=== PATIENT | female | born 1980 | race Caucasian/White ===

== ENCOUNTER → 2020-08-21 | Day surgery (SDC) | payer MEDICARE, MEDICAID ==
[~2020-08-21] MED LIST: BLISOVI 24 FE1 EACH PO; DILAUDID 44 MG/1 M1 IMPLANT; FAMOTIDINE 40 M40 M1 PO; FENOFIBRATE145 M1 PO; FETZIMA80 MG PO; HYDROCHLOROTH12.5 M2 PO; INSULIN AS100 UNIT/1 SUBQ; KLONOPIN1 MG PO; LIPITOR40 MG PO; LOMOTIL 2.5-0.01 TAB PO; LOSARTAN POTAS100 MG PO; LUNESTA3 MG PO; METFORMIN HCL500 M3 PO; NORCO5 PO; NOVOLIN 70100 UNIT/1 SUBQ; ONDANSETRON HCL4 M2 SUBLING; PROAIR HFA8.5 GM INH; PROMS25 WY RECTAL; REXULTI1 MG PO; SPRAVATO84 MG NARES; TOPROL XL100 MG PO; TOPROL XL50 MG PO; TRESIBA100 UNIT/1 SUBQ; UNICOMPLEX M TA1 TA1 PO; VITAMIN B-121000 MC2 SUBLING; VITAMIN D310 MC2 PO; WELLBUTRIN XL300 MG PO; ZYRTEC10 M4 PO
--- NOTE | ~2020-08-21 | OP ---
[facility] [address] [place] [address] OPERATIVE REPORT Name: SATINDERBARNEY A Room: [facility]#: [id number] Admission: 08/21/20 Attend Phys: Kiran Mckeon Discharge: Date of : 76 Report #: [id number] THIS REPORT FOR: cc: JAMES THORPE DO Physician not on staff Kiran Mckeon MD ~ DOC #: [id number] Kiran Mckeon MD DATE OF SURGERY: 08/21/2020 PREOPERATIVE DIAGNOSIS: Gastroparesis with history of gastric stimulator placement. POSTOPERATIVE DIAGNOSIS: Gastroparesis with history of gastric stimulator placement. PROCEDURE PERFORMED: 1. Laparoscopic removal of gastric stimulator leads. 2. Removal of gastric stimulator generator. SURGEON: Kiran Mckeon MD ANESTHESIA: General. ESTIMATED BLOOD LOSS: Minimal. SPECIMENS: None. DESCRIPTION OF PROCEDURE: After informed consent was obtained, the patient was brought to the operating room and placed supine. SCDs were placed and working. Preoperative antibiotics were administered, general anesthesia was induced. The abdomen was prepped and draped in the usual sterile fashion. A 5 mm incision was made in the left upper quadrant. A 5 mm trocar was placed under direct vision. Pneumoperitoneum was established. A periumbilical 5 mm trocar was placed. Two right upper quadrant 5 mm ports were placed under direct vision. I was able to visualize the antrum of the stomach. Where the leads were placed, there were two wafers. The wafers were dissected out. The Ethibond suture holding them in place was cut. The wafers were both removed. The trumpets on the back end of the lead were also identified. The suture holding them in place were cut as well. This allowed removal of the leads. I then removed the laparoscope. An incision was made over the gastric generator site. Cautery dissection was made down through the subcutaneous tissue into the abdominal wall. The battery capsule was identified. Capsule was incised and the generator and the leads attached to it were removed easily. I then excised the capsule with cautery. The skin was then closed with 3-0 [place] [address] OPERATIVE REPORT Name: BARNEY RAJAN Jagruti Room: [facility]#: [id number] Admission: 08/21/20 Attend Phys: Kiran Mckeon Discharge: Date of : 76 Report #: [id number] layer and 4-0 Monocryl in running subcuticular fashion for the skin. Incisions were dressed with Steri-Strips and sterile gauze. COMPLICATIONS: None. DISPOSITION: The patient was taken to recovery in satisfactory condition. Kiran Mckeon MD JDP/MAX By: [id number] Mckeon MD /javier
[2020-08-21 06:55] LABS: HEMATOCRIT 38.5 % (37.0-47.0); HEMOGLOBIN 13.2 gm/dL (12.0-15.0); MCH 30.6 pg (26.0-34.0); MCHC 34.4 g/dL (28.0-37.0); MPV 6.8 fl. (7.2-11.1); RBC 4.33 mil/uL (4.20-5.00); RDW-CV 13.2 % (10.5-14.5); WBC 7.5 thou/uL (4.0-11.0)
[2020-08-21 07:02] LABS: CALCIUM 9.7 mg/dL (8.5-10.1); CREATININE 0.8 mg/dL (0.6-1.3); POTASSIUM 4.2 mmol/L (3.5-5.1)
--- NOTE | 2020-08-21 11:10 | EKG ---
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
== END | disposition home or self-care (01) ==
LOC: M.SUR 06:32
PROVIDERS: ATTEND Surgery
DX: K31.84 Gastroparesis (principal); I10 Essential (primary) hypertension; E11.9 Type 2 diabetes mellitus without complications; J45.909 Unspecified asthma, uncomplicated; F32.9 Major depressive disorder, single episode, unspecified; F41.9 Anxiety disorder, unspecified; K21.9 Gastro-esophageal reflux disease without esophagitis; G47.30 Sleep apnea, unspecified; Z79.899 Other long term (current) drug therapy; Z20.822 Contact with and (suspected) exposure to COVID-19; Z98.890 Other specified postprocedural states; Z88.8 Allergy status to other drugs, medicaments and biological substances